=== PATIENT | male | born 1965 | race Caucasian/White ===

== ENCOUNTER 2021-07-29 02:40 | Inpatient (IN) | payer OTHER ==
[2021-07-29] MEDS ORDERED: MAGNESIUM CITRATE 300 ML BOTTLE PO PRN (05:38)
[2021-07-29] MEDS ORDERED: MAG HYDROX/AL HYDROX/SIMETH 30 ML UNIT-DOSE CUP PO PRN (05:38)
[2021-07-29] MEDS ORDERED: ACETAMINOPHEN 325 MG TABLET (FP) PO PRN (05:38)
[2021-07-29] MEDS ORDERED: MAGNESIUM HYDROX 2400MG/30ML ORAL SUSPENSION 30 ML CUP PO PRN (05:38)
[2021-07-29] MEDS ORDERED: guaiFENesin 200 MG/10 ML 10 ML UNIT-DOSE CUPS PO PRN (05:38)
[2021-07-29] MEDS ORDERED: LOPERAMIDE HCL 2 MG CAPSULE PO PRN (05:38)
[2021-07-29] MEDS ORDERED: P-EPHED 60MG/TRIPROLIDI 2.5MG TABLET PO PRN (05:38)
[2021-07-29] MEDS ORDERED: IBUPROFEN 400 MG TABLET (FP) PO PRN (05:38)
[2021-07-29 06:22] VITALS: BMI 23.1
[2021-07-29] MEDS ORDERED: ERGOCALCIFEROL (VIT D2) 50,000 UNIT (1.25 MG) CAPSULE PO SCH (11:00)
[2021-07-29] MEDS ORDERED: ARTIFICIAL TEARS (POLYVINYL ALCOHOL) OPTH DROPS OU PRN (11:01)
[2021-07-29] MEDS: PRENATAL VITAMINS W/ FOLIC ACID TABLET (FP) PO SCH (11:48)
[2021-07-29] MEDS: ATORVASTATIN CA 20 MG TABLET (FP) PO SCH (11:48)
[2021-07-29] MEDS: LEVOTHYROXINE NA 100 MCG TABLET (FP) PO SCH (14:06)
[2021-07-29 14:20] LABS: HEMATOCRIT 35.6 % (35.4-49); HEMOGLOBIN 12.3 GM/dL (11.7-16.9); MCH 33.4 pg (25.7-33.7); MCHC 34.7 g/dl (32.0-35.9); MEAN CELL VOLUME 96.4 fl (80-96); MEAN PLT VOLUME 8.9 fl (7.5-11.1); PLATELET COUNT 226 10^3/uL (134-434); RBC 3.69 M/mm3 (4.00-5.60); RDW 13.6 % (11.9-15.9); WHITE BLOOD COUNT 3.5 K/mm3 (4.0-10.0)
[2021-07-29 14:25] LABS: ALBUMIN 3.5 g/dl (3.4-5.0); BLOOD UREA NITROGEN 24.6 mg/dL (7-18); CALCIUM 8.6 mg/dL (8.5-10.1)
[2021-07-29 14:30] LABS: BILIRUBIN,TOTAL 0.2 mg/dL (0.2-1)
[2021-07-29] MEDS ORDERED: METHOCARBAMOL 500 MG TABLET PO PRN (14:47)
[2021-07-29 14:49] LABS: SYPHILIS W/ RPR CONF NON-REACTIVE (NONREACTIVE)
[2021-07-29] MEDS: THIAMINE HCL 100 MG TABLET (FP) PO SCH (22:20)
[2021-07-29] MEDS: MELATONIN 5 MG TABLETS PO SCH (22:20)
[2021-07-29] MEDS: levETIRAcetam 500 MG TABLET (FP) PO SCH (22:20)
[2021-07-29] MEDS: carBAMazepine 200 MG TABLET PO SCH (22:20)
[2021-07-30] MEDS ORDERED: methaDONE HCL 10 MG TABLET PO SCH (06:00)
[2021-07-30] MEDS ORDERED: methaDONE HCL 40 MG DISPERSABLE TABLET ONE (06:02)
[2021-07-30] MEDS ORDERED: methaDONE HCL 10 MG TABLET ONE (06:02)
[2021-07-30] MEDS: LEVOTHYROXINE NA 100 MCG TABLET (FP) PO SCH (06:04)
[2021-07-30] MEDS ORDERED: PT OWN MED DRAWER 7, Y5N ONE ×3 (08:47→19:07)
[2021-07-30] MEDS: PRENATAL VITAMINS W/ FOLIC ACID TABLET (FP) PO SCH (09:30)
[2021-07-30] MEDS: ATORVASTATIN CA 20 MG TABLET (FP) PO SCH (09:30)
[2021-07-30] MEDS: carBAMazepine 200 MG TABLET PO SCH ×2 (09:30→21:17)
[2021-07-30] MEDS: levETIRAcetam 500 MG TABLET (FP) PO SCH ×2 (09:30→21:17)
[2021-07-30] MEDS: MELATONIN 5 MG TABLETS PO SCH (21:17)
[2021-07-30] MEDS: THIAMINE HCL 100 MG TABLET (FP) PO SCH (21:17)
[2021-07-31] MEDS ORDERED: methaDONE HCL 40 MG DISPERSABLE TABLET ONE (03:17)
[2021-07-31] MEDS ORDERED: methaDONE HCL 10 MG TABLET ONE (03:17)
[2021-07-31] MEDS ORDERED: PT OWN MED DRAWER 7, Y5N ONE (03:18)
[2021-07-31] MEDS: LEVOTHYROXINE NA 100 MCG TABLET (FP) PO SCH (06:56)
[2021-07-31 07:03] VITALS: BP 131/76; PULSE 77; TEMP 97.5
[2021-07-31] MEDS: levETIRAcetam 500 MG TABLET (FP) PO SCH (09:12)
[2021-07-31] MEDS: PRENATAL VITAMINS W/ FOLIC ACID TABLET (FP) PO SCH (09:12)
[2021-07-31] MEDS: ATORVASTATIN CA 20 MG TABLET (FP) PO SCH (09:12)
[2021-07-31] MEDS: carBAMazepine 200 MG TABLET PO SCH (09:13)
== END 2021-07-31 09:38 | disposition left against medical advice (07) | DRG 770 ==
LOC: YASAS 02:40 → Y5N 10:40
PROVIDERS: ADMIT Allergy & Immunology; ATTEND Allergy & Immunology
PROC: HZ42ZZZ Group Counseling for Substance Abuse Treatment, Cognitive-Behavioral (ICD-10-PCS; principal; 2021-07-29)
DX: F14.20 Cocaine dependence, uncomplicated (principal); F11.20 Opioid dependence, uncomplicated; G40.909 Epilepsy, unspecified, not intractable, without status epilepticus; E03.9 Hypothyroidism, unspecified; E78.5 Hyperlipidemia, unspecified; H91.93 Unspecified hearing loss, bilateral; R47.9 Unspecified speech disturbances; Z87.820 Personal history of traumatic brain injury; Z87.891 Personal history of nicotine dependence
CPT/HCPCS: 36415; 71046-TC-FY; 80053; 80156; 80177; 85027; 86780; 86803; 87522; C9803; U0003; U0005